=== PATIENT | female | born 1955 | race Caucasian/White ===

== ENCOUNTER 2017-04-24 10:47 | Outpatient (CLI) | payer BC ==
--- NOTE | 2017-04-24 13:06 | MMO ---
BILATERAL MAMMOGRAMS: Comparison is made to the exams of 2015 and 2016. Interpreted with computer-aided detection. Scattered fibroglandular densities. No evidence of mass or distortion. No suspicious calcification . No evidence of interval change. Recommend 1-year followup. IMPRESSION: BIRADS 1: Negative Routine annual screening mammography (for women over age 40) POS: [facility]
== END 2017-04-24 10:48 | disposition home or self-care (01) ==
LOC: MAMMO 10:47
PROVIDERS: ATTEND Obstetrics & Gynecology
DX: Z12.31 Encounter for screening mammogram for malignant neoplasm of breast (principal)
CPT/HCPCS: 77067; G0202

== ENCOUNTER 2018-04-29 10:08 | Outpatient (CLI) | payer OTHER ==
--- NOTE | 2018-04-29 14:06 | BD ---
BONE DENSITOMETRY USING DEXA: Date: 04/29/18 HISTORY: Age-related osteoporosis. FINDINGS: Lumbar Spine: BMD (g/cm2) L1 1.350 T-Score: 3.3 Z-Score: 4.6 L2 1.370 T-Score: 3.1 Z-Score: 4.6 L3 1.340 T-Score: 2.3 Z-Score: 3.9 L4 1.270 T-Score: 1.9 Z-Score: 3.5 L1-L4 1.330 T-Score: 2.6 Z-Score: 4.1 Findings compatible with normal bone mineral density. Some of the lumbar spine measurements are sligh tly elevated due to degenerative changes. Left Hip: Femoral Neck: 0.850 T-Score: 0.0 Z-Score: 1.3 Total Femur: 1.120 T-Score: 1.5 Z-Score: 2.5 Composite equals normal bone mineral density. FRAX score is as follows: Major osteoporotic fracture risk of 5.8% and hip fracture risk of 0.2%. IMPRESSION: Normal bone mineral density. The patient does not have a significant increased risk of osteoporotic f ractures. POS: [facility]
== END 2018-04-29 10:09 | disposition home or self-care (01) ==
LOC: BICMAMMO 10:08
PROVIDERS: ATTEND Obstetrics & Gynecology
DX: Z12.31 Encounter for screening mammogram for malignant neoplasm of breast (principal); Z13.820 Encounter for screening for osteoporosis
CPT/HCPCS: 77063; 77067; 77080

== ENCOUNTER 2019-05-13 09:14 | Outpatient (CLI) | payer BC ==
--- NOTE | 2019-05-13 09:53 | MMO ---
Bilateral MAMMO Bilat Screen [facility]. CLINICAL HISTORY: Patient is 64 years old and is seen for screening. The patient has no family history of breast cancer. The patient has no personal history of cancer. VIEWS: The views performed were: bilateral craniocaudal with tomosynthesis and bilateral mediolateral oblique with tomosynthesis. FILMS COMPARED: The present examination has been compared to a prior imaging study performed at [facility] on 04/29/2018. This study has been interpreted with the assistance of computer-aided detection. MAMMOGRAM FINDINGS: There are scattered fibroglandular densities. There are no suspicious masses, suspicious calcifications, or new areas of architectural distortion. IMPRESSION: THERE IS NO MAMMOGRAPHIC EVIDENCE OF MALIGNANCY. A ROUTINE FOLLOW-UP MAMMOGRAM IN 1 YEAR IS RECOMMENDED. THE RESULTS OF THIS EXAM WERE SENT TO THE PATIENT. ACR BI-RADS Category 1 - Negative MAMMOGRAPHY NOTE: 1. A negative mammogram report should not delay a biopsy if a dominant of clinically suspicious mass is present. 2. Approximately 10% to 15% of breast cancers are not detected by mammography. 3. Adenosis and dense breasts may obscure an underlying neoplasm. Reported by: RUEL ROGERS MD Electonically Signed: [id number]
== END 2019-05-13 09:15 | disposition home or self-care (01) ==
LOC: BICMAMMO 09:14
PROVIDERS: ATTEND Obstetrics & Gynecology
DX: Z12.31 Encounter for screening mammogram for malignant neoplasm of breast (principal)
CPT/HCPCS: 77063; 77067

== ENCOUNTER 2020-05-19 08:47 | Outpatient (CLI) | payer OTHER ==
--- NOTE | 2020-05-19 11:11 | MMO ---
Bilateral MAMMO Bilat Screen [facility]. CLINICAL HISTORY: Patient is 65 years old and is seen for screening. The patient has no family history of breast cancer. The patient has no personal history of cancer. VIEWS: The views performed were: bilateral craniocaudal with tomosynthesis and bilateral mediolateral oblique with tomosynthesis. FILMS COMPARED: The present examination has been compared to prior imaging studies performed at [facility] on 03/13/2016, 04/25/2017, 04/29/2018 and 05/13/2019. This study has been interpreted with the assistance of computer-aided detection. MAMMOGRAM FINDINGS: There are scattered fibroglandular densities. There are no suspicious masses, suspicious calcifications, or new areas of architectural distortion. IMPRESSION: THERE IS NO MAMMOGRAPHIC EVIDENCE OF MALIGNANCY. A ROUTINE FOLLOW-UP MAMMOGRAM IN 1 YEAR IS RECOMMENDED. THE RESULTS OF THIS EXAM WERE SENT TO THE PATIENT. ACR BI-RADS Category 1 - Negative MAMMOGRAPHY NOTE: 1. A negative mammogram report should not delay a biopsy if a dominant of clinically suspicious mass is present. 2. Approximately 10% to 15% of breast cancers are not detected by mammography. 3. Adenosis and dense breasts may obscure an underlying neoplasm. Reported by: JUJU MENDES MD Electonically Signed: [id number]
== END 2020-05-19 08:48 | disposition home or self-care (01) ==
LOC: BICMAMMO 08:47
PROVIDERS: ATTEND Obstetrics & Gynecology
DX: Z12.31 Encounter for screening mammogram for malignant neoplasm of breast (principal)
CPT/HCPCS: 77063; 77067

== ENCOUNTER 2021-05-25 09:47 | Outpatient (CLI) | payer OTHER | END 2021-05-25 09:48 | disposition home or self-care (01) | LOC: BICMAMMO 09:47 | PROVIDERS: ATTEND Family Medicine | DX: Z12.31 Encounter for screening mammogram for malignant neoplasm of breast (principal) | CPT/HCPCS: 77063; 77067 ==

== ENCOUNTER 2022-07-10 08:45 | Outpatient (CLI) | payer MEDICARE | END 2022-07-10 08:46 | disposition home or self-care (01) | LOC: BICMAMMO 08:45 | PROVIDERS: ATTEND Family Medicine | DX: Z12.31 Encounter for screening mammogram for malignant neoplasm of breast (principal); Z13.820 Encounter for screening for osteoporosis; N95.9 Unspecified menopausal and perimenopausal disorder | CPT/HCPCS: 77063; 77067; 77080 ==

== ENCOUNTER 2023-07-12 09:22 | Outpatient (CLI) | payer MEDICARE | END 2023-07-12 09:23 | disposition home or self-care (01) | LOC: BICMAMMO 09:22 | PROVIDERS: ATTEND Family Medicine | DX: Z12.31 Encounter for screening mammogram for malignant neoplasm of breast (principal) | CPT/HCPCS: 77063; 77067 ==

== ENCOUNTER 2024-07-14 09:21 | Outpatient (CLI) | payer MEDICARE | END 2024-07-14 09:22 | disposition home or self-care (01) | LOC: BICMAMMO 09:21 | PROVIDERS: ATTEND Family Medicine | DX: Z12.31 Encounter for screening mammogram for malignant neoplasm of breast (principal) | CPT/HCPCS: 77063; 77067 ==